=== PATIENT | female | born 1935 | race Caucasian/White ===

== ENCOUNTER → 2016-12-15 | Outpatient (REF) | payer MEDICARE ==
[~2016-12-15] MED LIST: ASPI81TA85; CALCTAB75 PO; COUM2.5T11 PO; FURO40TA2 PO; IRON18TA2 PO; K-TA1TAB PO; NORT10CA2 PO; PERC5TAB6 PO; PRAV40TA2 PO; TYLE325T5 PO; ULTR37.52 PO; vitamin D OR
== END ==
LOC: M SMT 12:56
PROVIDERS: ATTEND Urology
DX: C67.9 Malignant neoplasm of bladder, unspecified (principal)

== ENCOUNTER → 2017-06-15 | Outpatient (REF) | payer MEDICARE ==
[~2017-06-15] MED LIST changes: -COUM2.5T11 PO; +COUM2.5T17 PO; +PERC5TAB12 PO; -PERC5TAB6 PO; -ULTR37.52 PO; +ULTR37.54 PO
== END ==
LOC: M SMT 13:01
PROVIDERS: ATTEND Urology
DX: C67.9 Malignant neoplasm of bladder, unspecified (principal)

== ENCOUNTER → 2017-07-26 | Outpatient (REF) | payer MEDICARE ==
[2017-07-26 19:00] LABS: IMMUNOGLOBULIN G 795 MG/DL (681-1648); IMMUNOGLOBULIN M 131 MG/DL (40-230); TOTAL PROTEIN 6.3 GM/DL (6.4-8.2)
[2017-07-29 00:07] LABS: FREE KAPPA LIGHT CHAINS SERUM 16.9 mg/L (3.3-19.4); FREE LAMBDA LIGHT CHAINS SERUM 18.6 mg/L (5.7-26.3); KAPPA/LAMBDA RATIO SERUM 0.91 (0.26-1.65)
[2017-07-29 12:14] LABS: ALBUMIN % 57.1 % (55.8-66.1); GAMMA GLOBULIN % 14.1 % (11.1-18.8)
== END ==
LOC: M LAB REF 17:36
PROVIDERS: ATTEND Internal Medicine Medical Oncology
DX: D47.2 Monoclonal gammopathy (principal)

== ENCOUNTER 2018-03-21 07:44 | Day surgery (SDC) | payer MEDICARE ==
[2018-03-21] MEDS: NS 1,000 ML IV (08:00)
[2018-03-21] MEDS ORDERED: PROPOFOL 200 MG/20 ML VIAL As Ordered ×2 (08:17→09:23)
== END 2018-03-21 10:05 | disposition home or self-care (01) ==
LOC: M OPP 07:44
DX: K92.1 Melena (principal); K59.00 Constipation, unspecified; Z80.0 Family history of malignant neoplasm of digestive organs; D12.3 Benign neoplasm of transverse colon; D12.5 Benign neoplasm of sigmoid colon; K57.30 Diverticulosis of large intestine without perforation or abscess without bleeding; K64.8 Other hemorrhoids; K21.9 Gastro-esophageal reflux disease without esophagitis; K44.9 Diaphragmatic hernia without obstruction or gangrene; Z85.51 Personal history of malignant neoplasm of bladder; Z92.21 Personal history of antineoplastic chemotherapy; R12 Heartburn; D64.9 Anemia, unspecified; M19.90 Unspecified osteoarthritis, unspecified site; G43.909 Migraine, unspecified, not intractable, without status migrainosus; N18.9 Chronic kidney disease, unspecified; Z96.652 Presence of left artificial knee joint; Z87.891 Personal history of nicotine dependence; Z79.82 Long term (current) use of aspirin; Z79.899 Other long term (current) drug therapy; Z79.01 Long term (current) use of anticoagulants
CPT/HCPCS: 45385

== ENCOUNTER → 2018-07-27 | Outpatient (REF) | payer MEDICARE | LOC: M SMT 17:16 | DX: Z85.51 Personal history of malignant neoplasm of bladder (principal) | CPT/HCPCS: 88108 ==

== ENCOUNTER → 2018-10-24 | Outpatient (REF) | payer MEDICARE ==
[~2018-10-24] MED LIST changes: +ALLO100T PO; -ASPI81TA85; +ASPI81TA85 PO; +CART180C3 PO; +CENTCHW3 PO; +CYCL10TA PO; +FURO20TA2 PO; +METO1TAB32 PO; +POTA20TA6 PO; +STOO1CAP9 PO; +XARE20TA PO
== END ==
LOC: M SMT 13:45
PROVIDERS: ATTEND Urology
DX: C67.9 Malignant neoplasm of bladder, unspecified (principal)

== ENCOUNTER → 2018-11-23 | Outpatient (CLI) | payer MEDICARE ==
[~2018-11-23] MED LIST changes: +ISOVUE-370 76% 100ML VIAL (Q9967) As Ordered ONE
--- NOTE | 2018-11-23 16:26 | REP ---
CT of the abdomen pelvis without and with IV contrast, CT urogram protocol: There are no comparison studies. The patient has history of appendectomy, hiatal hernia surgery and hysterectomy. There are no renal, ureteral or bladder calculi. There is no hydronephrosis or perinephric stranding. There is a Bosniak type 1 renal cortical cysts in the right kidney posterolaterally. There are no solid renal masses. There are no bladder calculi. No bladder masses are identified. The visualized lung rivers are unremarkable. The hepatic parenchyma is unremarkable. The gallbladder, pancreas and spleen are unremarkable. There is no hiatal hernia. The adrenals and abdominal aorta are unremarkable. The bowel and mesentery are unremarkable. Pelvis: The terminal ileum is unremarkable. Pelvic bowel loops are unremarkable. The vaginal cuff and adnexa are unremarkable. There is bilateral hip osteoarthritis. There is osteoarthritis in the lumbar spine facet articulations. Impression: There are no renal, ureteral or bladder calculi. There is no hydronephrosis. There are no renal or bladder masses. There is a Bosniak type 1 right renal cyst. Electronically Signed by jS Linda MD 11/23/2018 04:18 P
== END ==
LOC: M RAD 13:14
PROVIDERS: ATTEND Internal Medicine Nephrology
DX: N28.1 Cyst of kidney, acquired (principal)
CPT/HCPCS: 74178; Q9967

== ENCOUNTER → 2019-04-17 | Outpatient (REF) | payer MEDICARE ==
[~2019-04-17] MED LIST changes: +ACET-897 PO; +AMOX875T PO; +CALC600C3 PO; +IRON325T2 PO; -ISOVUE-370 76% 100ML VIAL (Q9967) As Ordered ONE; +LASI20TA3 PO; +LASI80TA3 PO; +MM S100C PO; +POTA1TAB14 PO; +SPIR-10 PO; +VITA50005 PO; +WARF4TAB52 PO
== END ==
LOC: M SMT 13:04
PROVIDERS: ATTEND Urology
DX: C67.9 Malignant neoplasm of bladder, unspecified (principal)

== ENCOUNTER → 2019-05-30 | Outpatient (REF) | payer MEDICARE ==
[2019-05-30 14:53] LABS: APPEARANCE, URINE CLEAR (CLEAR); BACTERIA, URINE AUTO NEGATIVE (NEGATIVE); BILIRUBIN, URINE AUTO NEGATIVE (NEGATIVE); BLOOD, URINE BLOOD 3+ (NEGATIVE); COLOR, URINE YELLOW (YELLOW); GLUCOSE, URINE (UA) AUTO NEGATIVE (NEGATIVE); KETONE, URINE AUTO NEGATIVE (NEGATIVE); LEUKOCYTE ESTERASE, URINE AUTO NEGATIVE (NEGATIVE); MUCUS, URINE SMALL (NEGATIVE); NITRITE, URINE AUTO NEGATIVE (NEGATIVE); PROTEIN, URINE AUTO NEGATIVE (NEGATIVE); RBC, URINE AUTO TNTC /HPF (0-3); SPECIFIC GRAVITY URINE AUTO 1.008 (1.002-1.035); SQUAMOUS EPITHELIAL CELL UR AU 0 /HPF (0-6); UROBILINOGEN, URINE AUTO 0.2 mg/dL (0.0-2.0); WBC, URINE AUTO 3 /HPF (0-3)
== END ==
LOC: M SMT 13:36
PROVIDERS: ATTEND Urology
DX: C67.9 Malignant neoplasm of bladder, unspecified (principal); Z01.812 Encounter for preprocedural laboratory examination

== ENCOUNTER 2019-06-01 10:26 | Day surgery (SDC) | payer MEDICARE ==
[~2019-06-01] VITALS: Ht 144.8 cm; Wt 69.9 kg
[~2019-06-01 10:26] MED LIST changes: -AMOX875T PO; +LR 1,000 ML IV ONE; +ceFAZolin SOD 2 GM in IV 1 EA IV ONE; +mitoMYcin 40MG VIAL *UROLOGY* (J9280 PER 5MG) INTRAVESIC ONE
[2019-06-01 11:05] LABS: INR 1.13; PROTHROMBIN TIME 14.3 SECONDS (11.8-14.0)
[2019-06-01] MEDS ORDERED: ALLO100T PO (11:41)
[2019-06-01] MEDS ORDERED: AMOX875T PO (11:41)
[2019-06-01] MEDS ORDERED: METO1TAB32 PO (11:41)
[2019-06-01] MEDS ORDERED: dexameTHASONE 4 MG/ML 1ML VIAL (J1100) As Ordered ONE (13:18)
[2019-06-01] MEDS ORDERED: ROCURONIUM BROMIDE 50 MG/5 ML VIAL As Ordered ONE (13:18)
[2019-06-01] MEDS ORDERED: ONDANSETRON 4MG/2ML VIAL (J2405) As Ordered ONE (13:18)
[2019-06-01] MEDS ORDERED: LIDOCAINE 2% INJ 100 MG/5 ML SDV (FOR ANES.) As Ordered ONE (13:19)
[2019-06-01] MEDS ORDERED: PROPOFOL 200 MG/20 ML VIAL As Ordered ONE (13:19)
[2019-06-01] MEDS ORDERED: MIDAZOLAM INJ 2 MG/2 ML VIAL (J2250) As Ordered ONE (13:22)
[2019-06-01] MEDS ORDERED: fentaNYL 100 MCG/2 ML INJECTION (J3010) As Ordered ONE (13:22)
[2019-06-01] MEDS ORDERED: ePHEDrine SULFATE 25 MG/5 ML(5MG/ML) SYRINGE As Ordered ONE (15:00)
[2019-06-01] MEDS ORDERED: SUGAMMADEX SODIUM 500 MG/5 ML VIAL (BRIDION) As Ordered ONE (15:28)
[2019-06-01] MEDS ORDERED: fentaNYL 100 MCG/2 ML INJECTION (J3010) IV PRN (16:00)
[2019-06-01] MEDS ORDERED: ACETAMINOPHEN TAB 650MG DOSE (2X325MG) PO PRN (16:00)
[2019-06-01] MEDS ORDERED: ONDANSETRON 4MG/2ML VIAL (J2405) IV PRN (16:00)
[2019-06-01] MEDS ORDERED: PERCOCET 5MG/325MG TAB PO PRN (16:00)
[2019-06-01] MEDS ORDERED: HYDROMORPHONE HCL 0.5 MG/ 0.5 ML SYRINGE (J1170 PER 1) IV PRN (16:00)
[2019-06-01] MEDS ORDERED: LR 1,000 ML IV SCH (16:00)
--- NOTE | 2019-06-01 16:30 | RO ---
DATE OF PROCEDURE: 06/01/2019 PREPROCEDURE DIAGNOSIS: Bladder cancer. POSTPROCEDURE DIAGNOSIS: Bladder cancer. PROCEDURE: Cystoscopy, transurethral resection of bladder tumor (less than 2 cm), fulguration, intravesical mitomycin C installation. SURGEON: Dr. Danielito Luke PAINTER SPRING: None. ANESTHESIA: General. OPERATIVE INDICATIONS: This is an 83-year-old female with a history of low grade bladder cancer who on recent office cystoscopy was found to have recurrent small tumors near the right ureteral orifice and on the posterior bladder wall. She was brought to the operating room today for the above listed procedures. DESCRIPTION OF PROCEDURE: The patient was brought to the operating room and general anesthesia was induced. Prophylactic antibiotics were infused. She was then placed in dorsal lithotomy position and prepped and draped in the usual sterile fashion. A resectoscope was then inserted into the urethral meatus and advanced into the bladder using a visual obturator. The bladder was then thoroughly examined and revealed that the patient had several small papillary tumors lining the posterior bladder wall as well as one just in front of her right ureteral orifice. I then resected the majority of the tumors and then the smaller ones were fulgurated using the coagulation current. The one right in front of the ureteral orifice was resected and I did not damage the ureteral orifice in the process. Once satisfied that I had either resected or fulgurated all visible tumors, I then removed the specimens from the bladder using Ellik evacuator. Once all the specimens were removed, the resectoscope was removed and an 18 Maori 3-way catheter was inserted into the bladder. The irrigation port was hooked up to irrigation and that was clamped off. I then inserted mitomycin C into the outflow port with a total of 40 mL of that being inserted. Once that was done, the outflow port was plugged and this marked the conclusion of the procedure. The patient was taken out of the dorsal lithotomy position, awakened from anesthesia and transported to the recovery room in stable condition. Estimated blood loss: 5 mL. Complications: None. Specimen: Bladder tumors. Plan: Will keep the mitomycin C in the patient's bladder for approximately one hour and then will allow it to drain out. She will be discharged home with the catheter in place. The plan will be for her to followup in the clinic in approximately one week for catheter removal and to discuss her pathology results.
[2019-06-01 18:05] VITALS: BP 123/57
== END 2019-06-01 18:20 | disposition home or self-care (01) ==
LOC: M SDC 10:26
PROVIDERS: ATTEND Urology
DX: C67.4 Malignant neoplasm of posterior wall of bladder (principal); I10 Essential (primary) hypertension; E78.5 Hyperlipidemia, unspecified; K44.9 Diaphragmatic hernia without obstruction or gangrene; K21.9 Gastro-esophageal reflux disease without esophagitis; N18.9 Chronic kidney disease, unspecified; Z79.52 Long term (current) use of systemic steroids; Z79.82 Long term (current) use of aspirin; Z79.899 Other long term (current) drug therapy; Z79.01 Long term (current) use of anticoagulants
CPT/HCPCS: 36415; 51720; 52234; 85610; C1769; J0690; J1100; J2250; J2405; J3010; J9280

== ENCOUNTER → 2019-07-24 | Outpatient (REF) | payer MEDICARE ==
[~2019-07-24] MED LIST changes: +AMOX875T PO; -LR 1,000 ML IV ONE; -ceFAZolin SOD 2 GM in IV 1 EA IV ONE; -mitoMYcin 40MG VIAL *UROLOGY* (J9280 PER 5MG) INTRAVESIC ONE
== END ==
LOC: M SMT 17:09
PROVIDERS: ATTEND Urology
DX: N39.0 Urinary tract infection, site not specified (principal)
CPT/HCPCS: 87086; G0463

== ENCOUNTER 2020-03-05 07:30 | Day surgery (SDC) | payer MEDICARE ==
[~2020-03-05] VITALS: Ht 149.9 cm; Wt 58.1 kg
[~2020-03-05 07:30] MED LIST changes: -ASPI81TA85 PO; +ASPI81TA86 PO; +CENT1TAB PO; +CYCL-707 PO; -CYCL10TA PO; +IPRA6SP NARES; +PURE500C5 PO; +TORS20TA2 PO
[2020-03-05] MEDS ORDERED: LIDOCAINE 2% 100MG/5ML SDV (FOR ANES.) As Ordered ONE (08:22)
[2020-03-05] MEDS ORDERED: propofoL 200 MG/20 ML VIAL As Ordered ONE (08:22)
== END 2020-03-05 09:27 | disposition home or self-care (01) ==
LOC: M OPP 07:30
PROVIDERS: ATTEND Internal Medicine Gastroenterology
DX: R19.5 Other fecal abnormalities (principal); K63.5 Polyp of colon; K62.1 Rectal polyp; K64.8 Other hemorrhoids; K57.30 Diverticulosis of large intestine without perforation or abscess without bleeding; K22.8 Other specified diseases of esophagus; K22.70 Barrett's esophagus without dysplasia; K21.9 Gastro-esophageal reflux disease without esophagitis; R63.4 Abnormal weight loss; Z79.01 Long term (current) use of anticoagulants; Z79.891 Long term (current) use of opiate analgesic; Z79.899 Other long term (current) drug therapy; Z87.891 Personal history of nicotine dependence

== ENCOUNTER → 2020-09-09 | Outpatient (CLI) | payer MEDICARE ==
[~2020-09-09] MED LIST changes: -STOO1CAP9 PO; +STOO240C PO
--- NOTE | 2020-09-09 15:51 | REP ---
INDICATION: RT CHRONIC ULCER OF OTHER PART OF RT LOWER LEG. COMPARISON: None. TECHNIQUE: Real time rudd scale and Duplex Doppler evaluation of the right lower extremity arterial vasculature using linear high frequency transducer. FINDINGS: Duplex doppler interrogation demonstrates normal triphasic wave patterns and normal flow velocities from the common femoral artery through the popliteal and anterior tibial arteries. Biphasic waveforms are seen in the tibioperoneal trunk, posterior tibial artery and distal anterior tibial artery. There is minimal plaque in the common femoral artery through the popliteal artery. Heavily calcified calf arteries are noted particularly the posterior tibial artery. No definite focal stenosis is seen. PSV(cm/sec) Common femoral artery: 57 cm/s Profunda femoris artery: 46 cm/s Proximal superficial femoral artery: 61 cm/s Mid superficial femoral artery: 46 cm/s Distal superficial femoral artery: 44 cm/s Popliteal artery: For 35 cm/s Proximal KEV: 48 cm/s Tibioperoneal trunk: 29 cm/s Proximal TOWEL INSPECTOR: 45 cm/s Distal TOWEL INSPECTOR: 25 cm/s Distal KEV: 25 cm/s IMPRESSION: No Duplex Doppler sonographic evidence of hemodynamically significant stenosis of the right lower extremity arterial system. <Electronically signed by Sj Rudd > 09/09/20 [id number]
== END ==
LOC: M RAD 13:00
PROVIDERS: ATTEND Physician Assistant
DX: L97.812 Non-pressure chronic ulcer of other part of right lower leg with fat layer exposed (principal)

== ENCOUNTER → 2021-01-03 | Outpatient (CLI) | payer MEDICARE ==
--- NOTE | 2021-01-03 14:38 | REP ---
INDICATION: NON PRESSURE CHRONIC ULCER RT / LT ULCER LOWER HTN. Chronic venous hypertension. Contusion left lower extremity. COMPARISON: None. TECHNIQUE: Bilateral lower extremity duplex venous scanning is performed from the groin to the ankle level. A venous insufficiency reflux study was also performed bilaterally. FINDINGS: The deep veins are anechoic and fully compressible from the groin to the popliteal fossa in the left and right lower extremity. Color flow imaging is homogeneous. Spectral Doppler interrogation demonstrates intact respiratory variation in flow and normal manual augmentation of flow. There is no evidence of deep vein thrombosis in the femoropopliteal veins. There is no evidence of deep vein thrombosis in the visualized calf veins. Reflux findings. There is no observable significant reflux in either deep or superficial venous system in the right or left lower extremity. The greater saphenous vein dimensions on the right are 5 mm proximally, 3 mm at the midthigh, and 4 mm at the knee. The right lesser saphenous vein measures 2 mm. The left greater saphenous vein dimensions are 4 mm proximal, 3 mm at mid thigh, and 3 mm at the knee. The left lesser saphenous vein is 3 mm in diameter. IMPRESSION: No evidence of DVT in the femoropopliteal veins. No DVT in the visible portions of the calf veins. There is no evidence of deep or superficial system reflux on either side. <Electronically signed by Robert Fuchs > 01/03/21 [id number]
== END ==
LOC: M RAD 12:41
PROVIDERS: ATTEND Surgery
DX: L97.812 Non-pressure chronic ulcer of other part of right lower leg with fat layer exposed (principal); I87.311 Chronic venous hypertension (idiopathic) with ulcer of right lower extremity; S80.12XA Contusion of left lower leg, initial encounter; I87.312 Chronic venous hypertension (idiopathic) with ulcer of left lower extremity; Y92.89 Other specified places as the place of occurrence of the external cause; Y93.9 Activity, unspecified

== ENCOUNTER → 2021-04-29 | Outpatient (REF) | payer MEDICARE ==
[~2021-04-29] MED LIST changes: +ERGO500029 PO
== END ==
LOC: M LAB REF 13:19
PROVIDERS: ATTEND Nurse Practitioner Family
DX: E83.42 Hypomagnesemia (principal)

== ENCOUNTER → 2021-05-13 | Outpatient (REF) | payer MEDICARE | LOC: M SMT 05-12 12:06 | PROVIDERS: ATTEND Urology | DX: C67.9 Malignant neoplasm of bladder, unspecified (principal) ==

== ENCOUNTER → 2021-06-11 | Outpatient (REF) | payer MEDICARE | LOC: M SMT 18:29 | PROVIDERS: ATTEND Urology | DX: C67.9 Malignant neoplasm of bladder, unspecified (principal) ==

== ENCOUNTER 2021-11-14 14:20 | Emergency (ER) | payer MEDICARE ==
[~2021-11-14] VITALS: Ht 149.9 cm; Wt 64.5 kg
[2021-11-14 14:20] VITALS: BP 104/62
[~2021-11-14 14:20] MED LIST changes: +POTA-151 PO; -POTA20TA6 PO; +ULTR1TAB PO; -ULTR37.54 PO
[2021-11-14] MEDS ORDERED: DERMABOND TOPICAL SKIN ADHESIVE TOP ONE (16:25)
== END 2021-11-14 17:13 | disposition home or self-care (01) ==
LOC: M ED 14:20
DX: S81.812A Laceration without foreign body, left lower leg, initial encounter (principal); W26.8XXA Contact with other sharp object(s), not elsewhere classified, initial encounter; Y92.531 Health care provider office as the place of occurrence of the external cause; I10 Essential (primary) hypertension; E78.5 Hyperlipidemia, unspecified; G43.909 Migraine, unspecified, not intractable, without status migrainosus; Z79.899 Other long term (current) drug therapy; Z79.01 Long term (current) use of anticoagulants

== ENCOUNTER → 2022-02-03 | Outpatient (REF) | payer MEDICARE ==
[2022-02-04 19:21] LABS: FREE T3 1.2 PG/ML (2.2-4.0); FREE T4 0.78 NG/DL (0.76-1.46); THYROID STIMULATING HORMONE 50.6 uIU/ML (0.358-3.740)
== END ==
LOC: M LAB REF 16:56
PROVIDERS: ATTEND Registered Nurse
DX: E03.9 Hypothyroidism, unspecified (principal)

== ENCOUNTER → 2022-04-24 | Outpatient (CLI) | payer MEDICARE | LOC: M SOG 08:08 | PROVIDERS: ATTEND Orthopaedic Surgery | DX: M25.712 Osteophyte, left shoulder (principal) ==

== ENCOUNTER → 2022-05-01 | Outpatient (REF) | payer MEDICARE ==
[2022-05-01 19:00] LABS: CALCIUM LEVEL 8.3 MG/DL (8.8-10.2); CREATININE FOR GFR 1.76 MG/DL (0.55-1.30); GLOMERULAR FILTRATION RATE 29.2 (>32); POTASSIUM SERUM 3.2 MEQ/L (3.5-5.1)
[2022-05-01 19:01] LABS: ALBUMIN 3.5 GM/DL (3.2-5.2); BILIRUBIN,TOTAL 0.6 MG/DL (0.2-1.0); TOTAL PROTEIN 6.7 GM/DL (6.4-8.2); URIC ACID 7.2 MG/DL (2.6-6.0)
== END ==
LOC: M LAB REF 17:03
PROVIDERS: ATTEND Registered Nurse
DX: N18.32 Chronic kidney disease, stage 3b (principal); I50.9 Heart failure, unspecified; E79.0 Hyperuricemia without signs of inflammatory arthritis and tophaceous disease